=== PATIENT | female | born 1980 ===

== ENCOUNTER 2019-10-29 20:05 | Inpatient (IN) | payer OTHER ==
[2019-10-29] MEDS ORDERED: ePHEDrine SULFATE 50 MG/1 ML INJ IV PRN (21:07)
[2019-10-29] MEDS ORDERED: TERBUTALINE 1 MG/1 ML INJ SUB-Q PRN (21:07)
[2019-10-29] MEDS ORDERED: ONDANSETRON 4 MG/2 ML INJ IV PRN (21:07)
[2019-10-29] MEDS ORDERED: MINERAL OIL 30 ML ORAL LIQD PO PRN (21:07)
[2019-10-29] MEDS ORDERED: LIDOCAINE (2%) 20 MG/1 ML VIAL 20 ML MDV INFILTRATI ONE (21:07)
[2019-10-29] MEDS ORDERED: BUTORPHANOL 2 MG/1 ML INJ IV PRN (21:07)
[2019-10-29] MEDS ORDERED: TERBUTALINE 1 MG/1 ML INJ IVP PRN (21:07)
[2019-10-29] MEDS ORDERED: fentaNYL 100 MCG/2 ML INJ IV PRN (21:07)
--- NOTE | 2019-10-29 21:47 | History and Physical Report ---
History of Present Illness Date of examination: 10/29/19 Date of admission: 10/29/19 20:05 Chief complaint: IOL secondary to GDM History of present illness: 38 yo, , initiated care with [facility] at 6.6 wks gestation. Her has been complicated by AMA, GDM and BMI - 34. She presents to [facility] for IOL secondary to GDM. Reports + FM. Denies VB or LOF. Labs: O+, antibody negative; PAP smear negative; rubella immune; VDRL negative; HBsAg negative; HIV negative; GC/Chlamydia negative; Hgb A1c - 6.2% (05/06/19); 5.5% (08/20/19) MSAFP/Multiple markers negative; TSH - 1.62; 2 hr gtt: 92/223/203; GBS negative Past History Past Medical History: no pertinent history Past Surgical History: no surgical history Family/Genetic History: diabetes (Father) Social history: , lives with family, full code. denies: smoking, alcohol abuse, prescription drug abuse, IV drug use - Obstetrical History Expected Date of Delivery: 11/05/19 Actual Gestation: 39 Week(s) 0 Day(s) : 3 Para: 2 Hx # Term Pregnancies: 2 Number of Pregnancies: 0 Spontaneous Abortions: 0 Induced : 0 Number of Living Children: 2 #1 Gender: Male year: 2,[birth year] Birthweight: 3.43 kg Method of Delivery: Vaginal Gestational age at delivery: 40 Complications: none #2 Infant Gender: Male year: 2,[birth year] Birthweight: 3.289 kg Method of Delivery: Vaginal Gestational age at delivery: 40 Complications: none Medications and Allergies Active Meds: Active Medications Butorphanol Tartrate (Stadol) 2 mg IV Q2H PRN PRN Reason: Pain , Severe (7-10) Ephedrine Sulfate (Ephedrine Sulfate) 10 mg IV Q2M PRN PRN Reason: Hypotension Fentanyl (Sublimaze) 100 mcg IV Q2H PRN PRN Reason: Pain,Severe (7-10) LABOR PAIN Oxytocin/Sodium Chloride (Pitocin/Ns 20 Unit/1000ml Drip) 20 units in 1,000 mls @ 125 mls/hr IV DIRECT MOI Oxytocin/Sodium Chloride (Pitocin/Ns 30 Unit/500ml) 30 units in 500 mls @ 1 mls/hr IV TITR MOI; Protocol Lactated Ringer's (Lactated Ringers) 1,000 mls @ 125 mls/hr IV DIRECT MOI Lidocaine (Xylocaine 2%) 20 ml INFILTRATI ONCE ONE Stop: 10/29/19 21:08 Mineral Oil (Mineral Oil) 30 ml PO QHS PRN PRN Reason: Constipation Ondansetron HCl (Zofran) 4 mg IV Q8H PRN PRN Reason: Nausea And Vomiting Terbutaline Sulfate (Brethine) 0.25 mg SUB-Q ONCE PRN PRN Reason: Hyperstimulation/Hypertonicity Terbutaline Sulfate (Brethine) 0.25 mg IVP ONCE PRN PRN Reason: Hyperstimulation/Hypertonicity Review of Systems All systems: negative - Vital Signs Vital signs: Vital Signs Pulse BP 96 H 138/91 10/29/19 21:02 10/29/19 21:02 Temp Pulse Resp BP Pulse Ox 96 H 138/91 10/29/19 21:02 10/29/19 21:02 - Physical Exam Breasts: Positive: normal Cardiovascular: Regular rate Lungs: Positive: Normal air movement Abdomen: Positive: other (gravid) Genitourinary (Female): Positive: normal external genitalia, normal perenium Vagina: Positive: normal moisture Uterus: Positive: enlarged (S>D) Extremities: Positive: edema Deep Tendon Reflex Grade: Normal +2 - Obstetrical FHR: category 1 Uterine Contraction Monitor Mode: External Cervical Dilatation: 2.5 (vertex) Cervical Effacement Percentage: 60 station: -2 Uterine Contraction Frequency (min): 6 Uterine Contraction Pattern: Irregular Uterine Tone Measurement Phase: Resting Uterine Contraction Intensity: Mild Results All other labs normal. Assessment and Plan - Patient Problems (1) Encounter for induction of labor Current Visit: Yes Status: Acute Plan to address problem: Admit to L & D Labor induction with low-dose Pitocin overnight Pain meds as desired Anticipate (2) Gestational diabetes mellitus (GDM) Current Visit: Yes Status: Acute Qualifiers: Gestational diabetes mellitus control: oral hypoglycemic-controlled Plan to address problem: Point of care glucose monitoring q 4 hrs (3) Advanced maternal age (AMA) in Current Visit: Yes Status: Acute
[2019-10-29] MEDS ORDERED: OXYTOCIN 20 UNIT/1000ML DRIP 20 UNITS/1,000 ML BAG IV SCH (22:00)
[2019-10-29] MEDS ORDERED: OXYTOCIN DRIP 30 UNITS/500 ML BAG IV SCH (22:00)
[2019-10-30] MEDS: LACTATED RINGERS 1,000 ML IV SCH ×2 (01:00→07:56)
[2019-10-30 01:04] LABS: Hematocrit 38.6 % (30.3-42.9); Hemoglobin 12.7 gm/dl (10.1-14.3); Mean Corpuscular HGB Conc 33 % (30-34); Mean Corpuscular Volume 85 fl (79-97); Platelet Count 199 K/mm3 (140-440); Red Blood Count 4.53 M/mm3 (3.65-5.03); Red Cell Distribution Width 14.1 % (13.2-15.2)
[2019-10-30] MEDS ORDERED: LIDOCAINE (2%) 20 MG/1 ML VIAL 20 ML MDV INFILTRATI ONE (10:48)
[2019-10-30] MEDS ORDERED: HYDROcodone/ACETAMINOPHEN 5-325 MG TAB PO PRN (11:22)
[2019-10-30] MEDS ORDERED: WITCH HAZEL/ GLYCERIN PAD TP PRN (11:22)
[2019-10-30] MEDS ORDERED: LANOLIN/ZINC/DIMETHICONE (LANSINOH) 7 GM TP PRN (11:22)
[2019-10-30] MEDS ORDERED: diphenhydrAMINE 25 MG CAP PO PRN (11:22)
[2019-10-30 11:30] LABS: ABG Base Excess -6.8 mmol/L (-2.0-3.0); ABG HCO3 21.7 mmol/L (20.0-26.0); ABG PCO2 55.2 mm Hg; ABG PH 7.212 pH Units (7.350-7.450)
--- NOTE | 2019-10-30 11:30 | Procedure Note ---
OB Delivery Note - Delivery Date of Delivery: 10/30/19 (1043) Surgeon: ELYSIA MENDEZ Estimated blood loss: 200cc - Vaginal Delivery presentation: vertex Intrapartum events: meconium, extend. tachycardia, other(please specify) (GDM) Delivery induction: oxytocin Delivery augmentation: rupture of membranes (AROM of a moderate amount of meconium stained fluids at 1026), pitocin Delivery monitor: external FHT, external uterine Route of delivery: Delivery placenta: spontaneous Delivery cord: 3 umbilical vessels Episiotomy: none Delivery laceration: 1st degree Delivery repair: vicryl Anesthesia: local Delivery comments: of a live 8'3 male infant over a 1st degree perineal laceration under IV pain control with Apgars of 6 and 8 at 1043 on 10/30/2019. Cord double clamped and cut by JAYCE Mendez, not stimulated and handed directly to awaiting NICU/RESP team due to meconium stained fluids. Cord blood gasses x 2 and Cord blood collected. Spontaneous delivery of placenta complete and intact with Og side presenting at 1053. Fundus is firm and midline located 4 below the U. Lochia is scant. Perineal laceration repaired with 2-[address]-1 under local 2% Lidocaine. Placenta to pathology. - Infant A at 1 minute: 6 at 5 minutes: 8 Infant Gender: Male (8'3)
[2019-10-30 11:41] LABS: ABG Methemoglobin 0.8 % (0.0-1.5); ABG Oxygen Saturation 75.3 % (95.0-99.0)
[2019-10-30 11:45] LABS: ABG Base Excess -6.5 mmol/L (-2.0-3.0); ABG HCO3 21.2 mmol/L (20.0-26.0); ABG Methemoglobin 0.9 % (0.0-1.5); ABG PCO2 50.1 mm Hg; ABG PH 7.245 pH Units (7.350-7.450)
[2019-10-30 11:51] LABS: ABG PO2 27.7 mm Hg (80.0-90.0)
[2019-10-30] MEDS: IBUPROFEN 600 MG TAB PO SCH (17:16)
[2019-10-30] MEDS: DOCUSATE SODIUM 100 MG CAP PO SCH (21:57)
[2019-10-30 23:27] LABS: Hematocrit 33.1 % (30.3-42.9); Hemoglobin 10.9 gm/dl (10.1-14.3)
[2019-10-31] MEDS: IBUPROFEN 600 MG TAB PO SCH ×2 (05:39)
[2019-10-31] MEDS: DOCUSATE SODIUM 100 MG CAP PO SCH (08:59)
--- NOTE | 2019-10-31 10:34 | Progress Note ---
Assessment and Plan - Patient Problems (1) Gestational diabetes mellitus (GDM) Current Visit: Yes Status: Acute Qualifiers: Gestational diabetes mellitus control: oral hypoglycemic-controlled Plan to address problem: Blood glucose results have been normal (2) Advanced maternal age (AMA) in Current Visit: Yes Status: Acute (3) Status post normal vaginal delivery Current Visit: Yes Status: Acute Plan to address problem: D/C home later today, if baby ok'd for D/C F/U at office in 6 wks for routine PP visit (4) Anemia Current Visit: Yes Status: Acute Qualifiers: Anemia type: other cause Other causes of anemia: acute posthemorrhagic Qualified Code(s): D62 - Acute posthemorrhagic anemia Plan to address problem: Asymptomatic Increase iron rich foods into diet Subjective - Subjective Date of service: 10/31/19 Principal diagnosis: S/P ; PPD#1 Interval history: 38 yo, , initiated care with [facility] at 6.6 wks gesta tion. Her has been complicated by AMA, GDM and BMI - 34. She presents to [facility] for IOL secondary to GDM. Reports + FM. Denies VB or LOF. Labs: O+, antibody negative; PAP smear negative; rubella immune; VDRL negative; HBsAg negative; HIV negative; GC/Chlamydia negative; Hgb A1c - 6.2% (05/06/19); 5.5% (08/20/19) MSAFP/Multiple markers negative; TSH - 1.62; 2 hr gtt: 92/223/203; GBS negative Patient reports: appetite normal, voiding normally, pain well controlled, flatus, ambulating normally, other (Desires to go home today) : doing well, bottle feeding (and ) Objective - Vital Signs Latest vital signs: Vital Signs Temp Pulse Resp BP BP Pulse Ox 10/31/19 07:23 98.1 F 63 20 111/56 96 10/31/19 00:20 97.8 F 72 16 116/61 96 10/30/19 22:22 98.4 F 74 16 122/70 97 10/30/19 16:35 98.4 F 68 18 125/66 97 10/30/19 14:30 98.6 F 82 18 130/74 97 10/30/19 12:29 85 135/78 10/30/19 11:13 106 H 141/60 10/30/19 10:35 102 H 98 Intake and Output 10/30/19 10/31/19 10/31/19 23:59 07:59 15:59 Intake Total 240 360 Output Total 800 Balance 240 -440 Intake: Oral 240 Intake, Free Water 360 Output: Urine 800 Void 800 Other: Total, Intake Amount 240 Total, Output Amount 800 # Voids Void 2 - Exam Breasts: Present: normal Cardiovascular: Present: Regular rate Lungs: Present: Normal air movement Abdomen: Present: soft Uterus: Present: firm, fundal height below umbilicus (U-1) Extremities: Present: edema (Bilat ankles/feet) Incision: Present: other (1 st degree perineal laceration, healing as expected) - Labs Labs: Abnormal lab results 10/30/19 10/30/19 Range/Units 11:00 11:01 ABG pH 7.212 L 7.245 L (7.350-7.450) pH Units ABG pO2 40.0 L 27.7 L* (80.0-90.0) mm Hg ABG O2 Saturation 75.3 L 57.0 L (95.0-99.0) % ABG Base Excess -6.8 L -6.5 L (-2.0-3.0) mmol/L ABG Hemoglobin 17.2 H 17.5 H (12.0-16.0) gm/dl Oxyhemoglobin 73.8 L 55.8 L (95.0-99.0) %
--- NOTE | 2019-10-31 10:35 | Discharge Summary ---
Providers - Providers Date of Admission: 10/29/19 20:05 Date of discharge: 10/31/19 (1500) Attending physician: YOLY CAN MD Primary care physician: YOLY CAN MD Hospitalization Reason for admission: induction of labor, IUP at term Delivery: Episiotomy: none Laceration: 1st degree (healing as expected) Other procedures: none complications: none Discharge diagnosis: IUP at term delivered baby: male Hospital course: See admission H & P; OB delivery summary; PP progress notes Condition at discharge: Good Disposition: DC-01 TO HOME OR SELFCARE - Discharge Diagnoses (1) Gestational diabetes mellitus (GDM) Status: Acute Qualifiers: Gestational diabetes mellitus control: oral hypoglycemic-controlled (2) Advanced maternal age (AMA) in Status: Acute (3) Status post normal vaginal delivery Status: Acute (4) Anemia Status: Acute Qualifiers: Anemia type: other cause Other causes of anemia: acute posthemorrhagic Qualified Code(s): D62 - Acute posthemorrhagic anemia Plan - Provider Discharge Summary Activity: routine, no sex for 6 weeks, no heavy lifting 4 weeks, no strenuous exercise Diet: other (Iron rich diet) Instructions: routine Additional instructions: [] Smoking cessation referral if applicable(refer to patient education folder for contact #) [] Refer to [facility] Booklet Call your doctor immediately for: * Fever > 100.5 * Heavy vaginal bleeding ( >1 pad per hour) * Severe persistent headache * Shortness of breath * Reddened, hot, painful area to leg or breast * Drainage or odor from incision. * Keep laceration site clean and dry at all times and follow doctor's instructions regarding bathing/showering - Follow up plan Follow up: YOLY CAN MD [Primary Care Provider] - 6 Weeks
[2019-10-31 17:18] VITALS: BP 131/63
== END 2019-10-31 17:15 | disposition home or self-care (01) | DRG 806 ==
LOC: LD 20:05 → OB 10-30 14:26
PROVIDERS: ADMIT Obstetrics & Gynecology; ATTEND Obstetrics & Gynecology
PROC: 10E0XZZ Delivery of Products of Conception, External Approach (ICD-10-PCS; principal; 2019-10-30)
PROC: 0HQ9XZZ Repair Perineum Skin, External Approach (ICD-10-PCS; 2019-10-30)
DX: O24.425 Gestational diabetes mellitus in childbirth, controlled by oral hypoglycemic drugs (principal); D62 Acute posthemorrhagic anemia; Z37.0 Single live birth; O77.0 Labor and delivery complicated by meconium in amniotic fluid; Z3A.39 39 weeks gestation of pregnancy; O76 Abnormality in fetal heart rate and rhythm complicating labor and delivery; O70.0 First degree perineal laceration during delivery; O90.81 Anemia of the puerperium
CPT/HCPCS: 36415; 82803; 82962; 85014; 85018; 85027; 86850; 86900; 86901; 88307; G0378; J2590; J3010; J7120